=== PATIENT | female | born 1935 | race Caucasian/White ===

== ENCOUNTER 2017-05-06 09:30 | Emergency (ER) | payer MEDICARE, OTHER ==
[2017-05-06 10:19] LABS: BILIRUBIN,URINE NEGATIVE (NEGATIVE); PH,URINE 6.5 PH (5.0-7.5)
[2017-05-06 10:21] LABS: UA CHARGE (STRIP ONLY) YES; UR CULTURE IF IND NOT INDICATED
--- NOTE | 2017-05-06 11:01 | ED Physician Documentation ---
PD HPI FEMALE - Stated complaint Stated Complaint: NEEDS CATH - History obtained from History obtained from: Patient, Family (daughter) - History of Present Illness Timing - details: Still present Associated symptoms: Other (Unable to void.). No: Fever Contributing factors: Other (One-week status post total hysterectomy with lysis of adhesions.) Recently seen: Surgery - Additional information Additional information: The patient is an 82-year-old female who presents with urinary retention. She reports associated nausea with one episode of vomiting this morning. She denies fever. One week ago she underwent transabdominal hysterectomy with lysis of adhesions. Postoperative Sloan catheter was removed yesterday. The patient has been unable to void today except for few small dribbles. 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: Hysterectomy - Present Medications Home Medications: Ambulatory Orders Medication Instructions Recorded Confirmed Nitrofurantoin [Macrobid] 100 mg PO BID #10 capsule 05/06/17 - Allergies Allergies/Adverse Reactions: Allergies Allergy/AdvReac Type Severity Reaction Status Date / Time codeine Allergy Unknown Verified 05/06/17 09:43 erythromycin base Allergy Unknown Verified 05/06/17 09:43 meloxicam [From Mobic] Allergy Unknown Verified 05/06/17 09:43 Sulfa (Sulfonamide Allergy Unknown Verified 05/06/17 09:43 Antibiotics) acetaminophen [From Vicodin] AdvReac Unknown Verified 05/06/17 09:43 hydrocodone bitartrate * AdvReac Unknown Verified 05/06/17 09:43 [From Vicodin] oxycodone HCl * AdvReac Unknown Verified 05/06/17 09:43 [From Percocet] - Social History Does the pt smoke?: No PD ED PE NORMAL - Vitals Vital signs reviewed: Yes (Systolic hypertension initially.) - General General: Alert and oriented X 3, Well developed/nourished - HEENT HEENT: Atraumatic - Neck Neck: No JVD - Cardiac Cardiac: RRR - Respiratory Respiratory: No respiratory distress, Clear bilaterally - Abdomen Abdomen: Soft, Other (Surgical incision site intact, with no associated erythema or drainage.) - Female Female : Other (Bladder scanner reveals more than 350 mL urine in the bladder. ) - Back Back: No CVA TTP - Derm Derm: No rash - Extremities Extremities: No edema, No calf tenderness / cord - Neuro Neuro: Alert and oriented X 3, No motor deficit, Normal speech Results - Vitals Vitals: Oxygen O2 Source Room air - Labs Labs: Laboratory Tests 05/06/17 10:10 Urine Color YELLOW Urine Clarity CLEAR Urine pH 6.5 Ur Specific [place] 1.010 Urine Protein NEGATIVE Urine Glucose (UA) NEGATIVE Urine Ketones 15 H Urine Occult Blood NEGATIVE Urine Nitrite NEGATIVE Urine Bilirubin NEGATIVE Urine Urobilinogen 0.2 (NORMAL) Ur Leukocyte Esterase NEGATIVE Ur Microscopic Review NOT INDICATED Urine Culture Comments NOT INDICATED PD MEDICAL DECISION MAKING - ED course Complexity details: reviewed results, re-evaluated patient, considered differential, d/w patient, d/w family, d/w senior consumer insights consultant ED course: The patient's presentation is significant for urinary retention one-week postoperatively, after Sloan catheter was removed yesterday. Urinalysis is negative, showing no evidence of infection. Treatment in the emergency department included insertion of Sloan catheter. She subsequently drained more than 450 mL clear urine. I discussed her condition with Dr. Dougherty, her surgeon in [place]. She agrees with leaving the Sloan catheter in place, and recommends the patient be prescribed Macrobid, and that she follow-up in clinic in 3 days. I discussed this with the patient and her daughter, as well as discussing with them potentially worrisome signs or symptoms that should prompt reevaluation in the emergency department. Departure - Departure Disposition: 01 Home, Self Care Clinical Impression: Postoperative urinary retention Condition: Stable Instructions: ED Retention Urinary Female, ED Catheter Care Sloan Follow-Up: Eileen Dougherty MD [Physician No Access] - Prescriptions: Nitrofurantoin [Macrobid] 100 mg PO BID #10 capsule Comments: Keep the Sloan catheter in place. Take Macrobid twice daily as prescribed. Followup with your surgeon on Friday this week. Return to the emergency department if you develop increasing abdominal pain, persistent vomiting, or otherwise worsening symptoms. Discharge Date/Time: 05/06/17 11:28
[2017-05-06 11:31] VITALS: BP 139/67
== END 2017-05-06 11:28 | disposition home or self-care (01) ==
LOC: ED 09:30
DX: R33.8 Other retention of urine (principal); Z98.890 Other specified postprocedural states
CPT/HCPCS: 51703; 81001; 81003; 87086; 99282; 99283